=== PATIENT | female | born 1975 | race Two or more races ===

== ENCOUNTER 2024-01-14 14:02 | Outpatient (RCR) | payer MEDICAID, SELFPAY ==
--- NOTE | 2024-01-25 21:51 | CTCFLWUP_ITS ---
Patient: EMELIA HAYDEN : 1975 Page 2 of 7 FOLLOW UP NOTE DATE OF GNPIEQN6601/22/2024 NAME: EMELIA HAYDEN ACCOUNT: [id number] : 1975 AGE: 48 DIAGNOSIS: Stage IIIb (pT4, pN1A, cM0) ER positive, UT positive, HER-2/aysha negative high-grade infilt rating ductal carcinoma of the right breast with focally involving the overlying skin and deep margin (08/02/2014). Status post right modified radical mastectomy. Hysterectomy (10/25/2011). 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 Status post total thyroidectomy followed by radioactive iod ine treatment. Premenopausal status REASON FOR TODAY?S VISIT: This is office follow-up visit. Ms. Hayden is here at [facility]. She is clinically doing well. Denies any cough, chest pain, abdominal pain or leg cramps. She complains of pain in the left knee. She recently fell and sustained injury to t he left knee. Currently she is being followed by orthopedic physician. The patient denies any fevers or night sweats. Has good appetite and good energy levels. Since last visit she had barium enema which is a negative study. HISTORY OF PRESENT ILLNESS: Madhuri Hidalgo is a 48-year-old [place]yan-speaking premenopausal Hispa gael female with following oncology history. 12/14/2013: Right breast ultrasound showed a suspicious nodule measuring 2.69 x 2.15 x 2.08 cm in siz e. 03/10/2014: Ultrasound-guided biopsy of the right breast nodule showed grade 2?3 invasive ductal carcin joseline, ER positive, UT positive and HER-2/aysha negative. 05/03/2014?07/05/2014: Patient received 4 cycles of AC chemotherapy. 08/02/2014: Patient had a right modified radical mastectomy. Surgical pathology specimen showed a pT4, pN1A disease. 09/01/2014?11/03/2014: Patient received 4 cycles of Taxotere chemotherapy. 11/21/2014?01/13/2015: Patient received a total of 6300 cGy of radiation to the right chest and suprac lavicular area. Following the radiation therapy patient was started on adjuvant tamoxifen. 03/13/2018: PET CT scan was done which showed a hypermetabolic left thyroid nodule measuring 14 mm in size with an SUV of 8.7. Metastatic disease was not found. 04/22/2018: Thyroid ultrasound showed a 7 x 11 mm nodule in the upper portion of the left thyroid lobe and a 20 x 13 mm second nodule in the lower portion of the left thyroid lobe. 05/23/2018: Nuclear medicine radioisotope thyroid uptake and scan showed elevated thyroid uptake value s. 06/25/2018: Patient had ultrasound-guided fine-needle aspiration of the left thyroid nodule. Patholog y showed papillary thyroid carcinoma. 07/09/2018: Thyroglobulin less than 2.0 , antithyroglobulin antibodies 1.8 (0.0?0.9). TSH 1.78. 08/18/2018: Total thyroidectomy. 10/22/2018: Patient had radioactive iodine treatment. 01/13/2019: CT scan of the neck with contrast?minimal residual left thyroid tissue, axial image 46, 7 x 6 mm Minimal residual right thyroid tissue, axial image 45, 4 x 3 mm 07/09/2018: Antithyroglobulin antibodies 1.8, thyroglobulin less than 2.0 10/01/2018: Antithyroglobulin antibodies 4.0, thyroglobulin 2.1 12/03/2018: Antithyroglobulin antibodies 5.4, thyroglobulin 5.1. 03/05/2019: Thyroglobulin antibody 4.7. 07/19/2019: Thyroglobulin antibody 4.3. 08/25/2019: Nuclear medicine thyroid scan? 09/28/2019: Thyroid sonography complete? 11/11/2019: CT scan of the neck with IV contrast?no interval metastatic disease. 11/29/2019: Left breast screening mammogram?BI-RADS Category 2: Benign findings. 11/29/2019: TSH 12.4, thyroglobulin antibody 4.6. 12/10/2019: PET CT scan? 07/20/2020 antithyroglobulin antibodies 4.0, thyroglobulin 3.4, TSH 0.457 07/28/2020: Total estrogens 1224 pg/mL, FSH 13.6, LH 17.9. 09/19/2020: CT scan of the neck, chest, abdomen and pelvis? 09/27/2020: Patient received 7.5 mg of Lupron. 10/17/2020: Patient had transvaginal as well as pelvic ultrasound. 01/10/2021: Thyroglobulin antibody 2.8, antithyroglobulin antibodies 3.5, thyroglobulin 2.6, TSH 2.6, CEA 0.9 03/05/2022: Thyroglobulin antibody 3.1, antithyroglobulin antibodies 2.5, thyroglobulin 2.0, TSH 0.953, free T4 1.69 07/04/2022: Thyroglobulin antibody 2.8, TSH 0.273, T41.75. 08/07/2022: Thyroglobulin antibody 2.6, TSH3.530, T4 1.38 08/27/2022: CT chest w con 08/27/2023: Barium enema done PAST MEDICAL HISTORY: PAST SURGICAL HISTORY: MEDICATIONS: 1. Calcium 600 + D(3) - 600 mg calcium- 200 unit 1 Capsule Twice a Day 2. Synthroid - 88 mcg 1 tab Daily 3. Synthroid - 100 mcg 1 tab Daily 4. tamoxifen - 20 mg 1 tab one tab po q daily Medications Last Reconciled by Brandy Davis MA on 09/25/2023 ALLERGIES: No Known Drug Allergies REVIEW OF SYSTEMS: Neurological: No headache, seizures or blurring of vision. Gastrointestinal: No nausea, vomiting, diarrhea or constipation. Cardiovascular: No palpitations or angina pains. Respiratory: No cough, chest pain or shortness of breath. PHYSICAL EXAMINATION: Vitals reviewed Alert oriented x 4 no adenopathy palpable in the neck, axillary and inguinal regions. Chest clear to auscultation. No wheezes or rales audible. Abdomen is soft. No hepatosplenomegaly palpable. Extremities no clubbing or cyanosis noted. ASSESSMENT: #1 stage IIIb history of ER positive, UT positive, HER-2/aysha negative invasive ductal carcinoma of ri ght breast without any evidence of recurrence Barium enema is negative. Pelvic as well as transvaginal ultrasounds were negative for any adnexal masses. Premenopausal status. 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 No clinical evidence of recurrence Status post radioactive iodine treatment. Currently Ms. Hayden is on Synthroid 75 mcg p.o. daily. #3 hypothyroidism on levothyroxine Follow with the primary care thyroid replacement therapy can worsen osteoporosis #4 osteoporosis Reclast therapy continue calcium and vitamin D. On electronically signed by Dr. Will Electronically Signed by: {Object.Sanct_ID*[email or web address]@M}, {Object.Sanct_ID*[email or web address]@U} D: {Object.Sanct_Date} T: {Object.Sanct_Time} CC: PCP: Shoaib Soliz Referring: Shoaib Soliz This document was completed utilizing speech recognition software. Grammatical errors, random word in sertions, pronoun errors, and incomplete sentences are an occasional consequence of this system due t o software limitations, ambient noise, and hardware issues. Any formal questions or concerns about th e content, text or information contained within the body of this dictation should be directly address ed to the provider for clarification.
== END 2024-01-31 23:59 | disposition home or self-care (01) ==
LOC: SCTC 14:02
PROVIDERS: PCP Family Medicine; Referring Provider Family Medicine; Visit Provider Radiology Therapeutic Radiology
DX: Z51.11 Encounter for antineoplastic chemotherapy (principal); C50.111 Malignant neoplasm of central portion of right female breast; Z17.0 Estrogen receptor positive status [ER+]; Z17.21 Progesterone receptor positive status; Z17.32 Human epidermal growth factor receptor 2 negative status; E89.0 Postprocedural hypothyroidism; Z85.850 Personal history of malignant neoplasm of thyroid; M81.0 Age-related osteoporosis without current pathological fracture; Z90.11 Acquired absence of right breast and nipple; Z92.3 Personal history of irradiation; Z79.810 Long term (current) use of selective estrogen receptor modulators (SERMs)
CPT/HCPCS: 96402; 99213; J1950; G0463

== ENCOUNTER → 2024-02-09 | Outpatient (CLI) | payer MEDICAID, SELFPAY ==
--- NOTE | 2024-02-09 15:30 | XR_ITS ---
Examination: Thyroid sonography TECHNIQUE: Multiple high resolution grayscale sonographic images thyroid bed Exam date and time: February 09, 2024 1504 hours INDICATIONS: Diagnosis thyroid cancer with thyroidectomy 2018 FINDINGS: No thyroid tissue noted No soft tissue mass in the thyroid bed IMPRESSION: No soft tissue mass or lymphadenopathy in the thyroid bed
== END | disposition home or self-care (01) ==
PROVIDERS: PCP Radiology Therapeutic Radiology; Referring Provider Radiology Therapeutic Radiology; Visit Provider Radiology Therapeutic Radiology
DX: C50.211 Malignant neoplasm of upper-inner quadrant of right female breast (principal); C50.011 Malignant neoplasm of nipple and areola, right female breast; C50.111 Malignant neoplasm of central portion of right female breast; C73 Malignant neoplasm of thyroid gland
CPT/HCPCS: 76536

== ENCOUNTER 2024-02-10 14:09 | Outpatient (RCR) | payer MEDICAID, SELFPAY | END 2024-03-02 23:59 | disposition home or self-care (01) | LOC: SCTC 14:09 | PROVIDERS: PCP Family Medicine; Referring Provider Family Medicine; Visit Provider Internal Medicine Hematology & Oncology | DX: Z51.11 Encounter for antineoplastic chemotherapy (principal); C50.111 Malignant neoplasm of central portion of right female breast; Z17.0 Estrogen receptor positive status [ER+]; Z17.21 Progesterone receptor positive status; Z17.32 Human epidermal growth factor receptor 2 negative status; M81.0 Age-related osteoporosis without current pathological fracture; E89.0 Postprocedural hypothyroidism | CPT/HCPCS: 96402; J1950 ==

== ENCOUNTER 2024-03-09 11:29 | Outpatient (RCR) | payer MEDICAID, SELFPAY | END 2024-04-02 23:59 | disposition home or self-care (01) | LOC: SCTC 11:29 | PROVIDERS: PCP Family Medicine; Referring Provider Family Medicine; Visit Provider Internal Medicine Hematology & Oncology | DX: Z51.11 Encounter for antineoplastic chemotherapy (principal); C50.111 Malignant neoplasm of central portion of right female breast; Z17.0 Estrogen receptor positive status [ER+]; Z17.21 Progesterone receptor positive status; Z17.32 Human epidermal growth factor receptor 2 negative status; Z90.11 Acquired absence of right breast and nipple; Z85.850 Personal history of malignant neoplasm of thyroid; E89.0 Postprocedural hypothyroidism; M81.0 Age-related osteoporosis without current pathological fracture | CPT/HCPCS: 96402; J1950 ==

== ENCOUNTER → 2024-03-10 | Outpatient (CLI) | payer MEDICAID, SELFPAY ==
--- NOTE | 2024-03-10 | XR_ITS ---
Examination: Screening digital mammography, unilateral left Computer aided detection 3-D breast Tomosynthesis, unilateral Date and time of exam: March 10, 2024 at 0810 hours Compared to 11/29/2019 Indication: Screening, personal history right breast cancer, right mastectomy Technique: Nonmagnified MLO, CC views of the left breast to been obtained, reconstructed from 3-D Tomosynthesis images. R2 computer aided detection program utilized for evaluation of suspicious masses and/or abnormal calcifications. 3-D Tomosynthesis images obtained. Findings: Scattered areas of fibroglandular density. Benign calcifications. No interval suspicious masses Impression: BI-RADS category II Benign findings Recommend 1 year follow-up mammogram.
--- NOTE | 2024-03-10 08:05 | XR_ITS ---
Examination: Breast ultrasound, unilateral, left complete Date and time of exam: March 10, 2024 0817 hours INDICATIONS: Screening study, personal history right breast cancer mastectomy 2014 Technique: Real-time benavides scale ultrasonographic imaging performed left breast including all 4 quadrants as well as nipple retroareolar and axillary region. Findings: No cystic or solid mass IMPRESSION: BI-RADS Category 1: Negative study
== END | disposition home or self-care (01) ==
LOC: CDIM 07:40
PROVIDERS: PCP Family Medicine; Referring Provider Internal Medicine Hematology & Oncology; Visit Provider Internal Medicine Hematology & Oncology
DX: Z12.31 Encounter for screening mammogram for malignant neoplasm of breast (principal); R92.322 Mammographic fibroglandular density, left breast; R92.1 Mammographic calcification found on diagnostic imaging of breast; C50.211 Malignant neoplasm of upper-inner quadrant of right female breast; C50.011 Malignant neoplasm of nipple and areola, right female breast
CPT/HCPCS: 76641; 77063; 77067

== ENCOUNTER 2024-03-20 08:06 | Emergency (ER) | payer MEDICAID, SELFPAY ==
[2024-03-20 08:07] VITALS: BMI 23.5
[2024-03-20 08:18] VITALS: BP 120/81; PULSE 89; RESP 17; TEMP 36.7; O2SAT 99
--- NOTE | 2024-03-20 08:27 | XR_ITS ---
Examination:Right hip AP, lateral, AP pelvis 3 views Technique: Hip AP lateral, AP pelvis, 3 views Exam date and time:March 20, 2024 0847 hrs. Indications: Patient fell today with injury to the right hip, right hip pain. Findings: No acute right hip fracture or hip dislocation Advanced right hip osteoarthritis Left hip intact Old appearing fracture right inferior pubic ramus Impression: No acute right hip fracture or hip dislocation Consider follow-up CT scan right hip and pelvis as clinically warranted.
[2024-03-20] MEDS: HYDROcodone/APAP 5/325 TABLET 1 TAB PO ×2 (09:03→12:38)
--- NOTE | 2024-03-20 09:03 | XR_ITS ---
Examination: CT pelvis without intravenous contrast. 2-D sagittal and coronal reconstructions. Date and time of exam:March 20, 2024 at 0952 hrs. Indications: Patient fell yesterday with injury to the right hip, right hip pain CTDI: vol (mGy) :8.2 DLP: (mGycm) : 227 Technique: Multiple 3 mm axial sections of the pelvis have been obtained with the 64 slice high resolution scanner. 2-D sagittal and coronal reconstructions. Low dose protocols were performed. One or more of the following dose reduction techniques were used; automated exposure control, adjustment of the mA and/or KV according to patient size, use of iterative reconstruction technique. Findings: Moderate osteopenia No right hip fracture Moderate right hip osteoarthritis Discontinuity of the medial wall of the right acetabulum, coronal image 59, axial image 93, this is present on the 11/20/2021 exam as well as old fracture right inferior pubic ramus Left hip intact Impression: No acute right hip fracture If right hip pain persists, recommend 1-2 day plain films pelvis and/or right hip MRI follow-up
--- NOTE | 2024-03-20 09:04 | PD.EDRME ---
Rapid Medical Screening Exam RME Arrival date/time: 03/20/24 08:06 48-year-old female with history of breast cancer hypothyroid presents to the emergency department complains of right hip pain after fall today Chief Complaint: Extremity Injury, Upper Time Seen by Provider: 03/20/24 08:12 Vital signs: Vital Signs Temperature 98.1 F 03/20/24 08:18 Pulse Rate 89 03/20/24 08:18 Respiratory Rate 17 03/20/24 08:18 Blood Pressure 120/81 03/20/24 08:18 Pulse Oximetry (%) 99 03/20/24 08:18 Oxygen Delivery Method Room Air 03/20/24 08:18
[2024-03-20 09:39] VITALS: BP 117/70; PULSE 76; RESP 25; TEMP 36.6; O2SAT 100
--- NOTE | 2024-03-20 09:52 | PD.EDHIP ---
Lower Extremity Injury RME/HPI General Chief Complaint: Extremity Injury, Lower Stated Complaint: R THIGH PAIN S/P GLF X YESTERDAY Time Seen by Provider: 03/20/24 08:12 Arrival date/time: 03/20/24 08:06 RME / HPI RME / HPI Narrative: 03/20/24 08:06 48-year-old female with history of breast cancer hypothyroid presents to the emergency department complains of right hip pain after fall today DR. BLACK MAIN ED EVALUATION: 48 year female presents to the Emergency Department with complaint of right hip pain secondary to ground-level fall today. Pain is described as aching and rated moderate in severity. Movement exacerbates the pain. No head injury or other injuries reported. PMHx: Breast Cancer (2014), chemotherapy (2014) and radiation therapy (2014); mastectomy (right 2014). Hysterectomy and a section. Social Hx: No tobacco, alcohol, or substance use. Related Data Home Medications ?Medication ?Instructions ?Recorded ?Confirmed levothyroxine 100 mcg capsule 100 mcg PO QDAY 01/29/19 07/18/23 anastrozole 1 mg tablet 1 mg PO QDAY 11/28/21 07/18/23 omeprazole 20 mg capsule,delayed 1 cap PO QDAY 11/28/21 07/18/23 release Previous Rx's ?Medication ?Instructions ?Recorded ibuprofen 600 mg tablet 600 mg PO Q6H PRN pain #30 tabs 11/28/21 meloxicam 7.5 mg tablet 7.5 mg PO QDAY #45 tabs 07/11/23 Allergies Allergy/AdvReac Type Severity Reaction Status Date / Time No Known Allergies Allergy Verified 03/20/24 08:10 Review of Systems Review of Systems Systems Reviewed: All systems reviewed, normal except as documented Narrative Review of Systems: GEN: No fever, no chills, no weight loss EYES: No discharge, no visual changes, no pain HEENT: No ear pain, no congestion, no sore throat PULM: No shortness of breath, no cough, no congestion CV: No chest pain, no dyspnea on exertion, no palpitations GI: No nausea, no vomiting, no diarrhea, no pain, no constipation : No frequency, no urgency and no dysuria MUSC/SKEL: + right hip pain, no back pain SKIN: No rash PSYCH: No hallucinations, no depression HEME/LYMPH: No easy bleeding or bruising tendencies NEURO: No weakness, no headache Past Medical History Past Medical History NEUROLOGIC: Negative Neurological Disorders or Seizures CARDIAC: Negative Cardiac Disorders or Congestive Heart Failure RESPIRATORY: Negative Chronic Obstructive Pulmonary Disease (COPD) GASTROINTESTINAL: Negative Gastrointestinal Disorders GENITOURINARY: Negative Genitourinary Disorders or Renal Disease REPRODUCTIVE: Positive Breast Cancer (2015) and Previous Pregnancies () MUSCULOSKELETAL: Positive Arthritis; Negative Musculoskeletal Disorders ENDOCRINE: Negative Endocrine Disorders, Diabetes Mellitus Type 1 or Diabetes Mellitus Type 2 HEMATOLOGIC: Negative Blood Disorders, Anemia or Clotting Problems PSYCHO/SOCIAL: Positive Depression and Anxiety OTHER HISTORY: Positive Chemotherapy (2015), Radiation Therapy (2015), Measles, Cancer (Thyroid) and Breast Cancer (2015) Family History FAMILY HISTORY: Negative Family Psychiatric Problems, Family Respiratory Disorders, Family Cardiac Disorders, Family Gastrointestinal Problems, Family Cancer, Family Surgery or Family Anesthesia Reaction Surgical History SURGICAL: Positive Mastectomy (right 2015), Hysterectomy and Section (x1) Social History SMOKING STATUS: Never smoker SUBSTANCE USE: does not use ALCOHOL: Never Travel History EBOLA RISK: No ED Exam Narrative Physical exam: GENERAL APPEARANCE: alert and oriented x 4, well-developed, well-nourished, no acute distress VITALS: All vitals were reviewed and the pulse ox is 95% on room air, which is normal according to my interpretation. HEENT: Normocephalic, atraumatic; pupils equal, round, reactive to light; EOMI; mucous membranes pink, moist; oropharynx clear NECK: Supple LUNGS: CTABL; no wheezes, no rales, no rhonchi HEART: Regular rate, regular rhythm; normal S1, S2; no murmurs ABDOMEN: non distended; normal BS; soft, no tenderness, no guarding, no rebound; no masses, no organomegaly, no hernia BACK: no CVA tenderness EXTREMITIES: right hip tenderness on palpation with limited ROM due to pain NEUROLOGIC: awake; alert and oriented x4; cranial nerves II-XII grossly intact; no focal sensory or motor deficits PSYCHIATRIC: appropriate mood and affect SKIN: warm, dry, normal color; no rashes Course Quality Measures none Orders Category Date Time Status CT hip RT wo con Stat Exams 03/20/24 09:03 Completed XR hip RT w pelvis 2-3V Stat Exams 03/20/24 08:27 Completed CBC Stat Lab 03/20/24 09:42 Completed CMP [Comprehensive Metabolic Panel] Stat Lab 03/20/24 09:42 Completed PT [Prothrombin Time with INR] Stat Lab 03/20/24 09:42 Completed PTT [Partial Thromboplastin Time] Stat Lab 03/20/24 09:42 Completed HYDROcodone*/APAP 5/325 [[facility] 5/325] Med 03/20/24 08:28 Discontinued 1 tab PO X1 ONE HYDROcodone*/APAP 5/325 [[facility] 5/325] Med 03/20/24 12:23 Discontinued 1 tab PO X1 ONE Vital Signs Vital signs: Vital Signs Temperature 98.1 F 03/20/24 08:18 Pulse Rate 89 03/20/24 08:18 Respiratory Rate 17 03/20/24 08:18 Blood Pressure 120/81 03/20/24 08:18 Pulse Oximetry (%) 99 03/20/24 08:18 Oxygen Delivery Method Room Air 03/20/24 08:18 Extremity Injury, Lower MDM Narrative MDM Narrative:: ISultana am scribing for and in the presence of Dr. Black. Patient data External records reviewed:: [facility] previous records (Reviewed oncology note by Dr. Will, dated 01/25/24) Clinical information provided by:: patient Social determinants that could affect healthcare access:: none Patient has the following chronic illnesses:: Breast Cancer (2014), chemotherapy (2015) and radiation therapy (2014); mastectomy (right 2015). Hysterectomy and a section. How is presenting disease/condition affected by chronic disease/condition?: uneffected by Evaluation data The following diagnostics were reviewed and interpreted by me:: lab results and radiology exam(s) Lab and/or radiology exams considered but not ordered:: none Interpretation Summary: Procedure(s): XR hip RT w pelvis 2-3V Accession Number(s): [id number] cc: Pina (SHAINA),Saulo MERRITT; Jasen Franco MD; Ann Rey PA-C~ Examination:Right hip AP, lateral, AP pelvis 3 views Technique: Hip AP lateral, AP pelvis, 3 views Exam date and time:March 20, 2024 0847 hrs. Indications: Patient fell today with injury to the right hip, right hip pain. Findings: No acute right hip fracture or hip dislocation Advanced right hip osteoarthritis Left hip intact Old appearing fracture right inferior pubic ramus Impression: No acute right hip fracture or hip dislocation Consider follow-up CT scan right hip and pelvis as clinically warranted. Dictated By: Jasen Franco MD Procedure(s): CT hip RT wo con Accession Number(s): [id number] cc: Pina (SHAINA),Saulo MERRITT; Jasen Franco MD; Ann Rey PA-C~ Examination: CT pelvis without intravenous contrast. 2-D sagittal and coronal reconstructions. Date and time of exam:March 20, 2024 at 0952 hrs. Indications: Patient fell yesterday with injury to the right hip, right hip pain CTDI: vol (mGy) :8.2 DLP: (mGycm) : 227 Technique: Multiple 3 mm axial sections of the pelvis have been obtained with the 64 slice high resolution scanner. 2-D sagittal and coronal reconstructions. Low dose protocols were performed. One or more of the following dose reduction techniques were used; automated exposure control, adjustment of the mA and/or KV according to patient size, use of iterative reconstruction technique. Findings: Moderate osteopenia No right hip fracture Moderate right hip osteoarthritis Discontinuity of the medial wall of the right acetabulum, coronal image 59, axial image 93, this is present on the 11/20/2021 exam as well as old fracture right inferior pubic ramus Left hip intact Impression: No acute right hip fracture If right hip pain persists, recommend 1-2 day plain films pelvis and/or right hip MRI follow-up Dictated By: Jasen Franco MD Medications / Prescriptions Medications or Prescriptions considered but not ordered:: none Medication administrations:: Medication Administration History Discontinued Medications Hydrocodone Bitart/Acetaminophen (Hydrocodone/Apap 5/325 Tablet) 1 tab PO X1 ONE Stop: 03/20/24 08:29 Last Admin: 03/20/24 09:03 Dose: 1 tab Documented By: GM Hydrocodone Bitart/Acetaminophen (Hydrocodone/Apap 5/325 Tablet) 1 tab PO X1 ONE Stop: 03/20/24 12:24 Last Admin: 03/20/24 12:38 Dose: 1 tab Documented By: VG see above Consultations Consultation(s) initiated? (list below): No Diagnosis Extremity Injury, Lower Differential Diagnosis: fracture of hip and other (right hip contusion, fall) Most likely diagnosis given after review of the tests above:: Acute pain of right hip Fall Admission Indicated Admission indicated?: not indicated Admission Request Was there a request for admission?: No Disposition Plan Disposition Plan: Discharge Discharge Attestation Discharge Attestation: The patient and all family members were given an opportunity to ask questions and understood the discharge instructions. Discharge instructions specifically effects, indications for sooner follow up or return to the emergency department, and the expected course of current diagnosis. Patient condition: Stable Discharge Plan Plan Patient Disposition: HOME (Self Care) Prescriptions/Referrals Prescriptions/Med Rec: No Action meloxicam 7.5 mg tablet 7.5 mg PO QDAY Qty: 45 3RF levothyroxine 100 mcg Capsule 100 mcg PO QDAY anastrozole 1 mg Tablet 1 mg PO QDAY omeprazole 20 mg capsule,delayed release(DR/EC) 1 cap PO QDAY Patient Comments: take 1 capsule by mouth once daily ibuprofen 600 mg tablet 600 mg PO Q6H PRN (Reason: pain) Qty: 30 0RF Referrals: Ann Rey PA-C [Primary Care Provider] - In 1 week Problem List Clinical Impression: Acute pain of right hip, Fall Patient/Caregiver Discharge Instructions Education Materials: ED Hip Contusion Print Language: Japanese Stand Alone Forms: Yara Award Info., Patient Portal Info Letter
[2024-03-20 10:05] LABS: Alanine Aminotransferase 11 U/L (10-49); Albumin, Serum 4.5 gm/dL (3.5-5.0); Albumin/Globulin Ratio 1.8 (1.2-2.2); Alkaline Phosphatase 39 U/L (46-116); Anion Gap 8 (7-16); Aspartate Amino Transferase 18 U/L (0-34); BUN/Creatinine Ratio 20 Ratio (12-20); Bilirubin,Total 0.5 mg/dL (0.3-1.2); Blood Urea Nitrogen 12 mg/dL (9-23); Carbon Dioxide 25.7 mMol/L (20.0-31.0); Chloride 106 mMol/L (98-107); Creatinine (Component) 0.6 mg/dL (0.6-1.3); Estimated Creatinine Clearance 109.1 mL/min (>60); Globulin 2.5 gm/dL (2.3-3.5); Glucose 94 mg/dL (74-106); Osmolality,Calculated 279 (275-295); Potassium 3.7 mMol/L (3.4-5.1); Sodium 140 mMol/L (136-145); eGFR > 60 See Note
[2024-03-20 10:09] LABS: Basophils # (Auto) 0.1 Thou/mm3 (0.0-0.2); Basophils % (Auto) 1 % (0-2.5); Eosinophils % (Auto) 1 % (0-10); Hematocrit 35.4 % (36.0-46.0); Hemoglobin 11.9 g/dL (12.0-16.0); Immature Granulocytes % (Auto) 0 % (0-0); Immature Granulocytes Auto 0.01 Thou/mm3 (0.00-0.00); Lymphocytes # (Auto) 1.8 Thou/mm3 (1.0-4.8); Lymphocytes % (Auto) 22 % (10-50); Mean Corpuscular HGB Conc 33.6 g/dl (31.0-37.0); Mean Corpuscular Hemoglobin 29.8 pg (25.0-35.0); Mean Corpuscular Volume 89 fL (80-100); Monocytes # (Auto) 0.5 Thou/mm3 (0.0-0.8); Monocytes % (Auto) 7 % (0-12); Neutrophils # (Auto) 5.8 Thou/mm3 (1.8-7.7); Neutrophils % (Auto) 71 % (37-80); Nucleated Red Blood Cell % 0 /100 WBC (0); Platelet Count 247 Thou/mm3 (140-440); Red Blood Count 3.99 Miln/mm3 (4.00-5.20); White Blood Count 8.3 Thou/mm3 (3.6-11.0)
[2024-03-20 10:17] LABS: INR 1.1 (0.9-1.3); Partial Thromboplastin Time 25.1 Seconds (22.0-36.0); Prothrombin Time 11.6 Seconds (9.0-12.2)
[2024-03-20 12:35] VITALS: BP 118/22; PULSE 71; RESP 16; TEMP 36.7; O2SAT 100
[2024-03-20 12:45] VITALS: BP 120/62; PULSE 65; RESP 16; TEMP 36.6; O2SAT 100
== END 2024-03-20 12:46 | disposition home or self-care (01) ==
PROVIDERS: Nurse Practitioner Primary Care; Emergency Provider Emergency Medicine; PCP Physician Assistant
DX: M25.551 Pain in right hip (principal); E03.9 Hypothyroidism, unspecified
CPT/HCPCS: 36415; 73502; 73700; 80053; 85025; 85610; 85730; 99284; A9270

== ENCOUNTER 2024-04-22 08:34 | Outpatient (RCR) | payer MEDICAID, SELFPAY | END 2024-04-30 23:59 | disposition home or self-care (01) | LOC: SCTC 08:34 | PROVIDERS: PCP Family Medicine; Referring Provider Family Medicine; Visit Provider Radiology Therapeutic Radiology | DX: Z51.11 Encounter for antineoplastic chemotherapy (principal); C50.111 Malignant neoplasm of central portion of right female breast; Z17.0 Estrogen receptor positive status [ER+]; Z17.21 Progesterone receptor positive status; Z17.32 Human epidermal growth factor receptor 2 negative status; E89.0 Postprocedural hypothyroidism; Z85.850 Personal history of malignant neoplasm of thyroid; Z92.3 Personal history of irradiation; Z79.810 Long term (current) use of selective estrogen receptor modulators (SERMs); Z90.11 Acquired absence of right breast and nipple | CPT/HCPCS: 96402; 99212; J1950; G0463 ==

== ENCOUNTER 2024-05-10 15:26 | Outpatient (RCR) | payer MEDICAID, SELFPAY | END 2024-05-31 23:59 | disposition home or self-care (01) | LOC: SCTC 15:26 | PROVIDERS: PCP Family Medicine; Referring Provider Family Medicine; Visit Provider Internal Medicine Hematology & Oncology | DX: Z51.11 Encounter for antineoplastic chemotherapy (principal); C50.111 Malignant neoplasm of central portion of right female breast; Z17.0 Estrogen receptor positive status [ER+]; Z17.21 Progesterone receptor positive status; Z17.32 Human epidermal growth factor receptor 2 negative status; Z90.11 Acquired absence of right breast and nipple; E89.0 Postprocedural hypothyroidism; Z85.850 Personal history of malignant neoplasm of thyroid | CPT/HCPCS: 96402; J1950 ==

== ENCOUNTER 2024-06-07 15:25 | Outpatient (RCR) | payer MEDICAID, SELFPAY | END 2024-06-30 23:59 | disposition home or self-care (01) | LOC: SCTC 15:25 | PROVIDERS: PCP Family Medicine; Referring Provider Family Medicine; Visit Provider Internal Medicine Hematology & Oncology | DX: Z51.11 Encounter for antineoplastic chemotherapy (principal); C50.211 Malignant neoplasm of upper-inner quadrant of right female breast; Z17.0 Estrogen receptor positive status [ER+]; Z17.21 Progesterone receptor positive status; Z17.32 Human epidermal growth factor receptor 2 negative status; Z79.818 Long term (current) use of other agents affecting estrogen receptors and estrogen levels; Z90.11 Acquired absence of right breast and nipple; Z85.850 Personal history of malignant neoplasm of thyroid; E89.0 Postprocedural hypothyroidism; Z92.3 Personal history of irradiation | CPT/HCPCS: 96372; 96402; J1950 ==

== ENCOUNTER 2024-07-13 09:34 | Outpatient (AMB) | payer MEDICAID, SELFPAY ==
[2024-07-13 09:48] VITALS: BP 118/82; PULSE 72; RESP 18; TEMP 36.9; O2SAT 99; BMI 25.5
--- NOTE | 2024-07-13 09:48 | ORTHONT_ITS ---
Vital signs 07/13/24 09:48 Height 1.6 m Height Method Stated Weight 65.459 kg Weight Measurement Method Standing Scale BMI 25.5 BP 118/82 Blood Pressure Source Automatic Cuff Blood Pressure Location Right Upper Arm Position Sitting Respiration 18 Pulse 72 Pulse Source Monitor Temp 98.4 F Temp Source Temporal Artery Scan Pulse Oximetry (%) 99 Oxygen Delivery Method Room Air Med/Allergies Allergies & Medications Allergies No Known Allergies Allergy (Verified 07/13/24 09:49) Medication Reconciliation ibuprofen 600 mg tablet 600 mg PO Q6H PRN pain #30 tabs 11/28/21 [Rx Confirmed 07/13/24] meloxicam 7.5 mg tablet 7.5 mg PO QDAY #45 tabs 07/11/23 [Rx Confirmed 07/13/24] meloxicam 7.5 mg tablet 7.5 mg PO QDAY #45 tabs 07/13/24 [Rx] Exam Exam Patient is in no acute distress and is cooperative with the examination today. Breathing is nonlabored. In no respiratory distress. Patient has no paraspinal tenderness. Spinal deformity cannot be appreciated. The gait of the patient is nonantalgic Bilateral extremities were evaluated and demonstrates sensation intact to light touch. Palpable pedal pulses are present. No significant edema is present. Bilateral knees were examined and the patient has full strength and range of motion.. The left hip was examined. Patient was able to flex to 90 degrees, adduct to 30 degrees, abduct to 40 degrees, internally rotate to 20 degrees, and externally rotate to 20 degrees. Patient has a negative logroll. Stinchfield is negative. The patient is nontender diffusely to touch. The right hip was examined. Patient was able to flex to 90 degrees, adduct to 30 degrees, abduct to 40 degrees, internally rotate to 10 degrees, and externally rotate to 20 degrees. Patient has a positive logroll and Stinchfield X-rays demonstrate a right hip with an aspherical femoral head. 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 She has evidence of a healed inferior pubic ramus fracture Assessment and Plan Problem List (1) Unilateral primary osteoarthritis, right hip: Status: Acute Plan: Patient is a pleasant 49-year-old female with right hip pain he has not tried significant conservative treatment. We will start with anti-inflammatories. We could possibly try cortisone injection if this does not get great relief. We also discussed that her total hip replacement is a little tough because of her protrusio. We will start with conservative management. We discussed natural history of arthritis in great detail today Office Procedures GNS Level of Care Nursing/Assessment Patient Status: Established Patient Nursing Assessment/Reassesment: Medication Reconciliation, Update PMH in EMR and Vital Signs Coordination of Care: Complex Care and Chronic Disease 1-5, Consent,records obtained, informed consent, Education Simp Pt/Fam, Results/Orders obtained and Staff clarify orders Special Needs: Language special needs (BARBADIAN ) Established Patient Charge Established Patient Point Assignment: 90 Established Patient Point Charge: EP Level 3 (80-115) MA Intake Visit Data Collection New Patient or Established: Established Patient (seen at [facility] within 3 years) Reason for Visit:: OSTEOARTHRITIS RT HIP Seen by Clinical Staff ONLY (RN/MA): No Park Worker Required: Yes PCP or OBGYN visit in last 3 months: Yes Hx Now: No Do You Feel Safe at Home: Yes Authorities Contacted: N/A Questionairres Past Medical History Past Medical History Have you ever been diagnosed with any of the following: Neurological Problems Seizures: No Cardiology Problems Congestive Heart Failure: No Respiratory Problems Chronic Obstructive Pulmonary Disease (COPD): No Smoking: No Smoking Cessation Counseling: No Smoking Exposure: No Tobacco Use: No Genital/Urinary Problems Renal Disease: No Reproductive Problems Breast Cancer: Yes (2014) Previous Pregnancies: Yes () Musculoskeletal Problems Arthritis: Yes Endocrine Problems Diabetes Mellitus Type 1: No Diabetes Mellitus Type 2: No Blood Problems Anemia: No Clotting Problems: No Psychologic Problems Depression: Yes Anxiety: Yes Other Problems Hospitalization: No Falls: No Blood Transfusions: No Blood Transfusion Reaction: No Anesthesia Reactions: No Chemotherapy: Yes (2014) Radiation Therapy: Yes (2014) Measles: Yes Cancer: Yes (Thyroid) Surgical History Hysterectomy: Yes Subjective Visit Visit for: follow up visit and hip (OSTEOARTHRITIS OF RT HIP ) Immunization / Flu Flu Vaccine in the Last 12 Months: Yes Flu Vaccine Exclusion Criteria: Already Received History of Present Illness Chief complaint: Right hip pain Patient is a 49-year-old Female with right hip pain. The right hip pain has been ongoing for 4 years. She reports that this all started after she had a fall. She had a inferior pubic ramus fracture 4 years ago. Personal History Red flag PMH: none Pain Pain level (0-10): 8 Pain duration: 4 YEARS Pain location: groin Pain quality: sharp and aching Pain timing: night and increases with activity Associated signs & symptoms: weakness and stiffness Ambulatory data Ambulatory device: none Walking distance (minutes): 60 Treatments Number of previous injections: 0 Number of Physical Therapy sessions: 0 Improvement with NSAIDS: n/a Review of Systems Review of Systems: All systems negative unless otherwise noted in HPI.
== END 2024-07-13 10:04 | disposition home or self-care (01) ==
PROVIDERS: PCP Family Medicine; Referring Provider Family Medicine; Supervising Provider Orthopaedic Surgery Adult Reconstructive Orthopaedic Surgery; Visit Provider Orthopaedic Surgery Adult Reconstructive Orthopaedic Surgery
DX: M16.11 Unilateral primary osteoarthritis, right hip (principal)
CPT/HCPCS: 99213; G0463

== ENCOUNTER 2024-07-20 14:46 | Outpatient (RCR) | payer MEDICAID, SELFPAY ==
--- NOTE | 2024-07-27 23:41 | CTCFLWUP_ITS ---
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 She presents for follow-up of her oncological conditions. The patient has been on tamoxifen for nearly 10 years following her breast cancer diagnosis. She is currently taking Lupron (leuprolide) 3.75 mg monthly and receives Reclast, with the last dose given in March 2024. She also takes calcium and vitamin D supplements for osteoporosis. At her last visit, she reported knee pain after an injury, but this is not mentioned as an ongoing concern in the current visit. The patient's overall health status appears stable. Her most recent mammogram on 03-27-2024 showed benign findings, with a one-year follow-up recommended. A thyroid ultrasound in March 2023 showed no gross tumor or thyroid tissue. The patient's last CT scan of the chest in 2022 was negative. She has completed her course of treatment for thyroid cancer, including total thyroidectomy and radioiodine therapy. The patient is considering hip surgery in the future and has been advised to discontinue tamoxifen for at least two weeks prior to any surgical procedures due to the risk of blood clots. She has also been informed that she can stop taking tamoxifen soon, as she has nearly completed the recommended 10-year course. Medications and Supplements - Calcium - Vitamin D - Lupron (leuprolide for depot) 3.75 mg every month - Reclast - Last given in March 2024 - Tamoxifen - Taking for almost 10 years - More side effects than benefits after 10 years - Should be stopped at least 2 weeks before surgery due to risk of blood clots Review of Systems Musculoskeletal: Positive for knee pain. Objective: Laboratory, Imaging, and Diagnostic Test Results - Date: Not specified - CBC: Hemoglobin 11.9 g/dL (low), WBC 8.3, Platelets 247 (normal) - Alkaline phosphatase: Low (specific value not provided) - Mammogram (03/27/2024): Benign findings - Thyroid ultrasound (03/26/2023): No gross tumor or thyroid tissue - Pelvic ultrasound (date not specified): Negative for adnexal masses - CT chest (2022): Negative - Thyroid ultrasound (2023): No tissue mass or lymph nodes in thyroid bed ONCOLOGY HISTORY: DIAGNOSIS: Stage IIIb (pT4, pN1A, cM0) ER positive, ND positive, HER-2/aysha negative high-grade infiltrating ductal carcinoma of the right breast with focally involving the overlying skin and deep margin (08/02/2014). Status post right modified radical mastectomy. Hysterectomy (10/25/2011). 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 Status post total thyroidectomy followed by radioactive iodine treatment. Premenopausal status REASON FOR TODAY?S VISIT: This is office follow-up visit. Ms. Hayden is here at [facility]. She is clinically doing well. Denies any cough, chest pain, abdominal pain or leg cramps. She complains of pain in the left knee. She recently fell and sustained injury to the left knee. Currently she is being followed by orthopedic physician. The patient denies any fevers or night sweats. Has good appetite and good energy levels. Since last visit she had barium enema which is a negative study. Central portion of breast [ICD9] 174.1*; Malignant neoplasm of upper-inner quadrant of right female breast [ICD10] C50.211; Malignant neoplasm of nipple and areola, right female breast [ICD10] C50.011; Malignant neoplasm of central portion of right female breast [ICD10] C50.111; Malignant neoplasm of thyroid gland [ICD10] C73 DATE OF DIAGNOSIS: 03/10/2014 STAGE/TNM: IIIB T4a N1a M0 TREATMENT HISTORY: Care?Plan Start?Date Cycle Day Intent DOXOrubicin?60,?Cyclophos?600?+?G 05/03/2014 1 21 Curative?(primary) DOCEtaxel?75?mg/m*2?-?Breast 09/01/2014 1 21 Curative?(adjuvant) Lupron?7.5?mg 08/17/2020 1 30 Curative?(adjuvant) Lupron?Depot?3.75?monthly 11/14/2022 1 28 Curative?(adjuvant) Reclast 03/17/2023 1 365 Palliative HISTORY OF PRESENT ILLNESS: Madhuri Hidalgo is a 49-year-old Malay-speaking premenopausal female with following oncology history. 12/14/2013: Right breast ultrasound showed a suspicious nodule measuring 2.69 x 2.15 x 2.08 cm in size. 03/10/2014: Ultrasound-guided biopsy of the right breast nodule showed grade 2?3 invasive ductal carcinoma, ER positive, ND positive and HER-2/aysha negative. 05/03/2014?07/05/2014: Patient received 4 cycles of AC chemotherapy. 08/02/2014: Patient had a right modified radical mastectomy. Surgical pathology specimen showed a pT4, pN1A disease. 09/01/2014?11/03/2014: Patient received 4 cycles of Taxotere chemotherapy. 11/21/2014?01/13/2015: Patient received a total of 6300 cGy of radiation to the right chest and supraclavicular area. Following the radiation therapy patient was started on adjuvant tamoxifen. 03/13/2018: PET CT scan was done which showed a hypermetabolic left thyroid nodule measuring 14 mm in size with an SUV of 8.7. Metastatic disease was not found. 04/22/2018: Thyroid ultrasound showed a 7 x 11 mm nodule in the upper portion of the left thyroid lobe and a 20 x 13 mm second nodule in the lower portion of the left thyroid lobe. 05/23/2018: Nuclear medicine radioisotope thyroid uptake and scan showed elevated thyroid uptake values. 06/25/2018: Patient had ultrasound-guided fine-needle aspiration of the left thyroid nodule. Pathology showed papillary thyroid carcinoma. 07/09/2018: Thyroglobulin less than 2.0 , antithyroglobulin antibodies 1.8 (0.0?0.9). TSH 1.78. 08/18/2018: Total thyroidectomy. 10/22/2018: Patient had radioactive iodine treatment. 01/13/2019: CT scan of the neck with contrast?minimal residual left thyroid tissue, axial image 46, 7 x 6 mm Minimal residual right thyroid tissue, axial image 45, 4 x 3 mm 07/09/2018: Antithyroglobulin antibodies 1.8, thyroglobulin less than 2.0 10/01/2018: Antithyroglobulin antibodies 4.0, thyroglobulin 2.1 12/03/2018: Antithyroglobulin antibodies 5.4, thyroglobulin 5.1. 03/05/2019: Thyroglobulin antibody 4.7. 07/19/2019: Thyroglobulin antibody 4.3. 08/25/2019: Nuclear medicine thyroid scan? 09/28/2019: Thyroid sonography complete? 11/11/2019: CT scan of the neck with IV contrast?no interval metastatic disease. 11/29/2019: Left breast screening mammogram?BI-RADS Category 2: Benign findings. 11/29/2019: TSH 12.4, thyroglobulin antibody 4.6. 12/10/2019: PET CT scan? 07/20/2020 antithyroglobulin antibodies 4.0, thyroglobulin 3.4, TSH 0.457 07/28/2020: Total estrogens 1224 pg/mL, FSH 13.6, LH 17.9. 09/19/2020: CT scan of the neck, chest, abdomen and pelvis? 09/27/2020: Patient received 7.5 mg of Lupron. 10/17/2020: Patient had transvaginal as well as pelvic ultrasound. 01/10/2021: Thyroglobulin antibody 2.8, antithyroglobulin antibodies 3.5, thyroglobulin 2.6, TSH 2.6, CEA 0.9 03/05/2022: Thyroglobulin antibody 3.1, antithyroglobulin antibodies 2.5, thyroglobulin 2.0, TSH 0.953, free T4 1.69 07/04/2022: Thyroglobulin antibody 2.8, TSH 0.273, T41.75. 08/07/2022: Thyroglobulin antibody 2.6, TSH3.530, T4 1.38 08/27/2022: CT chest w con 08/27/2023: Barium enema done OTHER MEDICAL HISTORY/CONDITIONS: FAMILY HISTORY: SOCIAL HISTORY: [employer] AGENT HISTORY: MEDICATIONS: 1. Calcium 600 + D(3) - 600 mg calcium- 200 unit 1 Capsule Twice a Day 2. Synthroid - 88 mcg 1 tab Daily 3. Synthroid - 100 mcg 1 tab Daily 4. Synthroid - 112 mcg 1 tab Daily 5. tamoxifen - 20 mg 1 tab Daily Medications Last Reconciled by Brandy Davis MA on 07/20/2024 ALLERGIES: No Known Drug Allergies REVIEW OF SYSTEMS: A complete 14-point review of systems was performed and is negative except as noted in interval history. PHYSICAL EXAMINATION: VITAL SIGNS: Temperature?99.1, B/P?122/84, Oxygen?Saturation?99% Weight?146?lbs (Change?since?07/05/24:?-1.4?lbs) PAIN: 3 - Between mild and moderate pain ECOG Performance Status: 0 - Asymptomatic and fully active Vitals reviewed Alert oriented x 4 no adenopathy palpable in the neck, axillary and inguinal regions. Chest clear to auscultation. No wheezes or rales audible. Abdomen is soft. No hepatosplenomegaly palpable. Extremities no clubbing or cyanosis noted. LABORATORY DATA: I have personally reviewed and interpreted each of the patient?s relevant lab tests, abnormal findings are below: Date 10/02/16 03/20/24 ??WHITE?BLOOD?COUNT?(Thou/mm3) 8.5 8.3 ??RED?BLOOD?COUNT?(Miln/mm3) 3.88?L 3.99?L ??HEMOGLOBIN?(gm/dl) 11.8?L 11.9?L ??HEMATOCRIT?(%) 34.6?L 35.4?L ??PLATELET?COUNT?(Thou/mm3) 245 247 ??NEUTROPHILS?%,?AUTO?(%) 71 71 ??LYMPH?%,?AUTO?(%) 23 22 ??NEUTROPHILS,?AUTO?(Thou/mm3) 6.0 5.8 ??GLUCOSE,RANDOM?(mg/dL) 84 94 ??BLOOD?UREA?NITROGEN?(mg/dL) 9 12 ??CREATININE?(mg/dL) 0.70 0.60 ??SODIUM?(mmol/L) 140 140 ??POTASSIUM?(mmol/L) 3.5 3.7 ??CHLORIDE?(mmol/L) 106 106 ??CrCl?(CandG)?(ml/min) 104.63 115.67 ??AST/SGOT?(Unit/L) 19 18 ??ALT/SGPT?(Unit/L) 22 11 ??ALKALINE?PHOSPHATASE?(Unit/L) 38?L 39?L ??BILIRUBIN,?TOTAL?(mg/dL) 0.4 0.5 ??PROTEIN?TOTAL?(gm/dl) 7.3 7.0 ??ALBUMIN,?SERUM?(gm/dl) 3.8 4.5 ??GLOBULIN?(gm/dl) 3.5 2.5 ??ALBUMIN/GLOBULIN?RATIO 1.1?L 1.8 ??CALCIUM,?SERUM?(mg/dL) 8.1?L 9.0 ??CALCIUM?SERUM?(CORRECTED)?(mg/dL) 8.3?L 9.0 ASSESSMENT/PLAN: Assessment and Plan: Kei diego is a patient with a history of stage 3B receptor-positive, HER2-negative high-grade invasive ductal carcinoma of the right breast (2014) and papillary thyroid cancer (2018), presenting for follow-up. Stage 3B receptor-positive, HER2-negative high-grade invasive ductal carcinoma, right breast Assessment: Patient was diagnosed with stage 3B receptor-positive, HER2-negative high-grade invasive ductal carcinoma of the right breast in 2014. She underwent neoadjuvant chemotherapy, modified mastectomy, and post-op radiation to the right chest wall and regional nodes. The patient has been on tamoxifen for nearly 10 years, which is considered the maximum beneficial duration. Recent mammogram on 03-27-2024 showed benign findings. The patient has completed the recommended course of tamoxifen therapy, and continuation beyond 10 years is associated with more side effects than benefits. Plan: - Discontinue tamoxifen at patient's discretion, as 10-year course is nearly complete - Continue calcium and vitamin D3 supplementation - Perform special blood test to monitor for breast cancer recurrence - Consider breast reconstruction with Dr. Walker if no hip surgery within one year - Follow-up mammogram recommended on 03-31-2025 - Advise to stop tamoxifen at least 2 weeks before any surgery due to blood clot risk Papillary thyroid cancer Assessment: Patient was diagnosed with papillary thyroid cancer on 06-27-2018 and underwent total thyroidectomy followed by radioiodine therapy. Post-treatment ultrasound on 03-26-2023 showed no gross tumor or thyroid tissue. Last year's ultrasound also showed no tissue mass or lymph nodes in the thyroid bed. Patient requires ongoing endocrinology follow-up for thyroid cancer management. Plan: - Referral placed for endocrinology follow-up - Instruct patient to call endocrinology in 3-4 weeks to schedule an appointment - Perform special blood test to monitor for thyroid cancer recurrence Osteoporosis Assessment: Patient has a history of osteoporosis and is currently on calcium and vitamin D supplementation. She receives Reclast (zoledronic acid) for management, with the last dose given in March 2024. Plan: - Continue calcium and vitamin D supplementation - Continue Reclast as prescribed (timing of next dose not specified) Anemia Assessment: Patient has mild anemia with a hemoglobin of 11.9 g/dL. White blood cell count is 8.3, and platelets are normal at 247. All enzymes are within normal limits except for low alkaline phosphatase. Plan: - Monitor hemoglobin levels (no specific follow-up mentioned) ORDERS: Order # Description [id number] Thyroid Stimulating Hormone + Assay Triiodothyronine (T3) [id number] Assay Triiodothyronine (T3) [id number] MD Follow Up 6 Month [id number] RETURN TO CLINIC: BILLING AND COMPLIANCE: I reviewed external records from providers outside my specialty as summarized above. I spent a total of 50 minutes on this patient?s care on the day of their visit excluding time spent related to any billed procedures. This time includes time spent with the patient as well as time spent documenting in the medical record, reviewing patients records and tests, obtaining history, placing orders, communicating with other healthcare professionals, counseling the patient, family or caregiver, and/or care coordination for the diagnoses above. Electronically Signed by: {Object.Sanct_ID*PnP.NameFL@M}, {Object.Sanct_ID*PnP.Suffix@U} D: {Object.Sanct_Date} T: {Object.Sanct_Time} CC: PCP: Shoaib Soliz Referring: Shoaib Soliz This document was completed utilizing speech recognition software. Grammatical errors, random word insertions, pronoun errors, and incomplete sentences are an occasional consequence of this system due to software limitations, ambient noise, and hardware issues. Any formal questions or concerns about the content, text or information contained within the body of this dictation should be directly addressed to the provider for clarification.
== END 2024-07-31 23:59 | disposition home or self-care (01) ==
LOC: SCTC 14:46
PROVIDERS: PCP Family Medicine; Referring Provider Family Medicine; Visit Provider Internal Medicine Hematology & Oncology
DX: Z51.11 Encounter for antineoplastic chemotherapy (principal); C50.111 Malignant neoplasm of central portion of right female breast; Z17.0 Estrogen receptor positive status [ER+]; Z17.21 Progesterone receptor positive status; Z17.32 Human epidermal growth factor receptor 2 negative status; Z79.810 Long term (current) use of selective estrogen receptor modulators (SERMs); M81.0 Age-related osteoporosis without current pathological fracture; Z90.11 Acquired absence of right breast and nipple; E89.0 Postprocedural hypothyroidism; Z92.3 Personal history of irradiation; Z85.850 Personal history of malignant neoplasm of thyroid; D64.9 Anemia, unspecified
CPT/HCPCS: 96402; 99213; J1950; G0463

== ENCOUNTER 2024-08-17 08:21 | Outpatient (AMB) | payer MEDICAID, SELFPAY ==
[2024-08-17 08:46] VITALS: BP 114/80; PULSE 84; RESP 18; TEMP 36.6; O2SAT 98; BMI 25.6
--- NOTE | 2024-08-17 08:46 | PD.ORTHCLVIS ---
Vital signs 08/17/24 08:46 Height 1.6 m Height Method Stated Weight 65.572 kg Weight Measurement Method Standing Scale BMI 25.6 BP 114/80 Blood Pressure Source Automatic Cuff Blood Pressure Location Left Upper Arm Position Sitting Respiration 18 Pulse 84 Pulse Source Monitor Temp 97.8 F Temp Source Temporal Artery Scan Pulse Oximetry (%) 98 Oxygen Delivery Method Room Air Med/Allergies Allergies & Medications Allergies No Known Allergies Allergy (Verified 08/17/24 08:47) Medication Reconciliation ibuprofen 600 mg tablet 600 mg PO Q6H PRN pain #30 tabs 11/28/21 [Rx Confirmed 08/17/24] meloxicam 7.5 mg tablet 7.5 mg PO QDAY #45 tabs 07/13/24 [Rx Confirmed 08/17/24] Exam Exam Patient is in no acute distress and is cooperative with the examination today. Breathing is nonlabored. In no respiratory distress. Patient has no paraspinal tenderness. Spinal deformity cannot be appreciated. The gait of the patient is nonantalgic Bilateral extremities were evaluated and demonstrates sensation intact to light touch. Palpable pedal pulses are present. No significant edema is present. Bilateral knees were examined and the patient has full strength and range of motion.. The left hip was examined. Patient was able to flex to 90 degrees, adduct to 30 degrees, abduct to 40 degrees, internally rotate to 20 degrees, and externally rotate to 20 degrees. Patient has a negative logroll. Stinchfield is negative. The patient is nontender diffusely to touch. The right hip was examined. Patient was able to flex to 90 degrees, adduct to 30 degrees, abduct to 40 degrees, internally rotate to 10 degrees, and externally rotate to 20 degrees. Patient has a positive logroll and Stinchfield X-rays demonstrate a right hip with an aspherical femoral head. 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 She has evidence of a healed inferior pubic ramus fracture. I have reviewed her CT. It almost looks like she has an acetabular fracture. There is clear missing bone medially. We will get an MRI given her cancer history Assessment and Plan Problem List (1) Unilateral primary osteoarthritis, right hip: Status: Acute Plan: Patient is a pleasant 49-year-old female with right hip pain And likely avascular porosis and prior radiation. I discussed with her that she has very little bone left for a total hip replacement. In fact, There is Significant bone loss medially likely consistent with pelvic discontinuity which would make a total hip replacement very difficult. I wonder if this is possibly cancer. Will get an MRI. We discussed with her that I would use a walker and be toe-touch weightbearing to protect her weightbearing at this time. Office Procedures GNS Level of Care Nursing/Assessment Patient Status: Established Patient Nursing Assessment/Reassesment: Medication Reconciliation, Update PMH in EMR and Vital Signs Coordination of Care: Complex Care and Chronic Disease 1-5, Education Complex Pt/Fam, Consent,records obtained, informed consent, Results/Orders obtained and Staff clarify orders Special Needs: Language special needs Established Patient Charge Established Patient Point Assignment: 95 Established Patient Point Charge: EP Level 3 (80-115) MA Intake Visit Data Collection New Patient or Established: Established Patient (seen at [facility] within 3 years) Reason for Visit:: RIGHT HIP PAIN Seen by Clinical Staff ONLY (RN/MA): No Catering Attendant Required: Yes PCP or OBGYN visit in last 3 months: Yes Hx Now: No Do You Feel Safe at Home: Yes Authorities Contacted: N/A Questionairres Past Medical History Past Medical History Have you ever been diagnosed with any of the following: Neurological Problems Seizures: No Cardiology Problems Congestive Heart Failure: No Respiratory Problems Chronic Obstructive Pulmonary Disease (COPD): No Smoking: No Smoking Cessation Counseling: No Smoking Exposure: No Tobacco Use: No Genital/Urinary Problems Renal Disease: No Reproductive Problems Breast Cancer: Yes (2014) Previous Pregnancies: Yes () Musculoskeletal Problems Arthritis: Yes Endocrine Problems Diabetes Mellitus Type 1: No Diabetes Mellitus Type 2: No Blood Problems Anemia: No Clotting Problems: No Psychologic Problems Depression: Yes Anxiety: Yes Other Problems Hospitalization: No Falls: No Blood Transfusions: No Blood Transfusion Reaction: No Anesthesia Reactions: No Chemotherapy: Yes (2014) Radiation Therapy: Yes (2015) Measles: Yes Cancer: Yes (Thyroid) Surgical History Hysterectomy: Yes Subjective Visit Visit for: follow up visit and hip Immunization / Flu Flu Vaccine in the Last 12 Months: No Flu Vaccine Exclusion Criteria: No Exclusion Criteria History of Present Illness Chief complaint: Right hip pain Patient is a 49-year-old Female with right hip pain. The right hip pain has been ongoing for 4 years. She reports that this all started after she had a fall. She had a inferior pubic ramus fracture 4 years ago. She is still walking. Personal History Red flag PMH: none Pain Pain level (0-10): 6 Pain duration: ALL DAY Pain location: outside (lateral) Pain quality: dull and aching Pain timing: increases with activity and stairs Associated signs & symptoms: none Ambulatory data Ambulatory device: none Walking distance (minutes): 60 Treatments Number of previous injections: 0 Improvement with previous injections: No Number of Physical Therapy sessions: 0 Improvement with PT: No Improvement with NSAIDS: no Review of Systems Review of Systems: All systems negative unless otherwise noted in HPI.
== END 2024-08-17 08:59 | disposition home or self-care (01) ==
LOC: HODSRG 08:21
PROVIDERS: PCP Family Medicine; Referring Provider Family Medicine; Supervising Provider Orthopaedic Surgery Adult Reconstructive Orthopaedic Surgery; Visit Provider Orthopaedic Surgery Adult Reconstructive Orthopaedic Surgery
DX: M16.11 Unilateral primary osteoarthritis, right hip (principal); M25.551 Pain in right hip
CPT/HCPCS: 99213; G0463

== ENCOUNTER 2024-08-18 14:27 | Outpatient (RCR) | payer MEDICAID, SELFPAY | END 2024-08-30 23:59 | disposition home or self-care (01) | LOC: SCTC 14:27 | PROVIDERS: PCP Family Medicine; Referring Provider Family Medicine; Visit Provider Radiology Therapeutic Radiology | DX: Z51.11 Encounter for antineoplastic chemotherapy (principal); C50.111 Malignant neoplasm of central portion of right female breast; Z90.11 Acquired absence of right breast and nipple; Z17.0 Estrogen receptor positive status [ER+]; Z17.21 Progesterone receptor positive status; Z17.32 Human epidermal growth factor receptor 2 negative status; E89.0 Postprocedural hypothyroidism; Z85.850 Personal history of malignant neoplasm of thyroid; Z92.3 Personal history of irradiation | CPT/HCPCS: 36415; 96402; 99213; J1950; G0463 ==

== ENCOUNTER 2024-09-01 14:47 | Outpatient (RCR) | payer MEDICAID, SELFPAY | END 2024-09-30 23:59 | disposition home or self-care (01) | LOC: SCTC 14:47 | PROVIDERS: PCP Family Medicine; Referring Provider Family Medicine; Visit Provider Internal Medicine Hematology & Oncology | DX: Z51.11 Encounter for antineoplastic chemotherapy (principal); C50.211 Malignant neoplasm of upper-inner quadrant of right female breast; Z17.0 Estrogen receptor positive status [ER+]; Z17.21 Progesterone receptor positive status; Z17.32 Human epidermal growth factor receptor 2 negative status; Z90.11 Acquired absence of right breast and nipple; E89.0 Postprocedural hypothyroidism; Z92.3 Personal history of irradiation; Z85.850 Personal history of malignant neoplasm of thyroid | CPT/HCPCS: 96402; J1950 ==

== ENCOUNTER → 2024-09-22 | Outpatient (CLI) | payer MEDICAID, SELFPAY ==
--- NOTE | 2024-09-22 15:44 | XR_ITS ---
Examination: Thyroid sonography complete TECHNIQUE: Grayscale sonographic images thyroid lobes Date and time: September 22, 2024 1551 hours Comparison February 09, 2024 INDICATIONS: Thyroid cancer diagnosis and thyroidectomy 2019, restaging FINDINGS: No soft tissue mass in the thyroid bed, no pathologic lymphadenopathy IMPRESSION: Negative study
== END | disposition home or self-care (01) ==
PROVIDERS: PCP Family Medicine; Referring Provider Radiology Therapeutic Radiology; Visit Provider Radiology Therapeutic Radiology
DX: C73 Malignant neoplasm of thyroid gland (principal); C50.211 Malignant neoplasm of upper-inner quadrant of right female breast; C50.011 Malignant neoplasm of nipple and areola, right female breast; C50.111 Malignant neoplasm of central portion of right female breast
CPT/HCPCS: 76536

== ENCOUNTER 2024-10-06 14:51 | Outpatient (RCR) | payer MEDICAID, SELFPAY | END 2024-10-31 23:59 | disposition home or self-care (01) | LOC: SCTC 14:51 | PROVIDERS: PCP Family Medicine; Referring Provider Family Medicine; Visit Provider Internal Medicine Hematology & Oncology | DX: Z51.11 Encounter for antineoplastic chemotherapy (principal); C50.211 Malignant neoplasm of upper-inner quadrant of right female breast; Z17.0 Estrogen receptor positive status [ER+]; Z17.21 Progesterone receptor positive status; Z17.32 Human epidermal growth factor receptor 2 negative status; Z90.11 Acquired absence of right breast and nipple; E89.0 Postprocedural hypothyroidism; Z85.850 Personal history of malignant neoplasm of thyroid; Z92.3 Personal history of irradiation | CPT/HCPCS: 96402; J1950 ==

== ENCOUNTER 2024-11-18 14:16 | Outpatient (RCR) | payer MEDICAID, SELFPAY | END 2024-11-30 23:59 | disposition home or self-care (01) | LOC: SCTC 14:16 | PROVIDERS: PCP Family Medicine; Referring Provider Family Medicine; Visit Provider Internal Medicine Hematology & Oncology | DX: Z51.11 Encounter for antineoplastic chemotherapy (principal); C50.211 Malignant neoplasm of upper-inner quadrant of right female breast; C73 Malignant neoplasm of thyroid gland; Z17.0 Estrogen receptor positive status [ER+]; Z17.21 Progesterone receptor positive status; Z17.32 Human epidermal growth factor receptor 2 negative status; Z90.11 Acquired absence of right breast and nipple | CPT/HCPCS: 96402; 99212; J1950; G0463 ==

== ENCOUNTER 2024-12-29 07:53 | Outpatient (RCR) | payer MEDICAID, SELFPAY | END 2024-12-31 23:59 | disposition home or self-care (01) | LOC: SCTC 07:53 | PROVIDERS: PCP Family Medicine; Referring Provider Family Medicine; Visit Provider Internal Medicine Hematology & Oncology | DX: Z51.11 Encounter for antineoplastic chemotherapy (principal); C50.211 Malignant neoplasm of upper-inner quadrant of right female breast; C73 Malignant neoplasm of thyroid gland; Z17.0 Estrogen receptor positive status [ER+]; Z17.32 Human epidermal growth factor receptor 2 negative status; Z90.11 Acquired absence of right breast and nipple; Z92.3 Personal history of irradiation; E89.0 Postprocedural hypothyroidism; Z79.810 Long term (current) use of selective estrogen receptor modulators (SERMs) | CPT/HCPCS: 96402; J1950 ==

== ENCOUNTER 2025-01-20 14:57 | Outpatient (RCR) | payer MEDICAID, SELFPAY ==
--- NOTE | 2025-01-20 15:40 | CTCFLWUP_ITS ---
Patient: EMELIA HAYDEN : 1975 Page 8 of 10 FOLLOW UP NOTE DATE OF SERVICE: 01/20/2025 NAME: EMELIA HAYDEN ACCOUNT: [id number] : 1975 AGE: 49 INTERVAL HISTORY: Follow-up for breast cancer and thyroid cancer, discussion about stopping tamoxifen after 10 years of use. Planning for hip surgery .. 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 She presents for follow-up of her oncological conditions. The patient has been on tamoxifen for nearly 10 years following her breast cancer diagnosis. She is currently taking Lupron (leuprolide) 3.75 mg monthly and receives Reclast, with the last dose given in March 2024. She also takes calcium and vitamin D supplements for osteoporosis. At her last visit, she reported knee pain after an injury, but this is not mentioned as an ongoing concern in the current visit. The patient's overall health status appears stable. Her most recent mammogram on 03-27-2024 showed benign findings, with a one-year follow-up recommended. A thyroid ultrasound in March 2023 showed no gross tumor or thyroid tissue. The patient's last CT scan of the chest in 2022 was negative. She has completed her course of treatment for thyroid cancer, including total thyroidectomy and radioiodine therapy. The patient is considering hip surgery in the future and has been advised to discontinue tamoxifen for at least two weeks prior to any surgical procedures due to the risk of blood clots. She has also been informed that she can stop taking tamoxifen soon, as she has nearly completed the recommended 10-year course. Medications and Supplements - Calcium - Vitamin D - Lupron (leuprolide for depot) 3.75 mg every month - Reclast - Last given in March 2024 - Tamoxifen - Taking for almost 10 years - More side effects than benefits after 10 years - Should be stopped at least 2 weeks before surgery due to risk of blood clots Review of Systems Musculoskeletal: Positive for knee pain. Objective: Laboratory, Imaging, and Diagnostic Test Results - Date: Not specified - CBC: Hemoglobin 11.9 g/dL (low), WBC 8.3, Platelets 247 (normal) - Alkaline phosphatase: Low (specific value not provided) - Mammogram (03/27/2024): Benign findings - Thyroid ultrasound (03/26/2023): No gross tumor or thyroid tissue - Pelvic ultrasound (date not specified): Negative for adnexal masses - CT chest (2022): Negative - Thyroid ultrasound (2023): No tissue mass or lymph nodes in thyroid bed ONCOLOGY HISTORY:?[facility] Oncology Hx? DIAGNOSIS: Stage IIIb (pT4, pN1A, cM0) ER positive, NV positive, HER-2/aysha negative high-grade infiltrating ductal carcinoma of the right breast with focally involving the overlying skin and deep margin (08/02/2014). Status post right modified radical mastectomy. Hysterectomy (10/25/2011). 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 Status post total thyroidectomy followed by radioactive iodine treatment. Premenopausal status REASON FOR TODAY?S VISIT: This is office follow-up visit. Ms. Hayden is here at [facility]. She is clinically doing well. Denies any cough, chest pain, abdominal pain or leg cramps. She complains of pain in the left knee. She recently fell and sustained injury to the left knee. Currently she is being followed by orthopedic physician. The patient denies any fevers or night sweats. Has good appetite and good energy levels. Since last visit she had barium enema which is a negative study. Central portion of breast [ICD9] 174.1*; Malignant neoplasm of upper-inner quadrant of right female breast [ICD10] C50.211; Malignant neoplasm of nipple and areola, right female breast [ICD10] C50.011; Malignant neoplasm of central portion of right female breast [ICD10] C50.111; Malignant neoplasm of thyroid gland [ICD10] C73 DATE OF DIAGNOSIS: 03/10/2014 STAGE/TNM: IIIB T4a N1a M0 TREATMENT HISTORY: Care?Plan Start?Date Cycle Day Intent DOXOrubicin?60,?Cyclophos?600?+?G 05/03/2014 21 Curative?(primary) DOCEtaxel?75?mg/m*2?-?Breast 09/01/2014 21 Curative?(adjuvant) Lupron?7.5?mg 08/17/2020 1 30 Curative?(adjuvant) Lupron?Depot?3.75?monthly 11/14/2022 1 28 Curative?(adjuvant) Reclast 03/17/2023 1 365 Palliative HISTORY OF PRESENT ILLNESS: Madhuri Hidalgo is a 49-year-old Dominican-speaking premenopausal female with following oncology history. 12/14/2013: Right breast ultrasound showed a suspicious nodule measuring 2.69 x 2.15 x 2.08 cm in size. 03/10/2014: Ultrasound-guided biopsy of the right breast nodule showed grade 2?3 invasive ductal carcinoma, ER positive, NV positive and HER-2/aysha negative. 05/03/2014?07/05/2014: Patient received 4 cycles of AC chemotherapy. 08/02/2014: Patient had a right modified radical mastectomy. Surgical pathology specimen showed a pT4, pN1A disease. 09/01/2014?11/03/2014: Patient received 4 cycles of Taxotere chemotherapy. 11/21/2014?01/13/2015: Patient received a total of 6300 cGy of radiation to the right chest and supraclavicular area. Following the radiation therapy patient was started on adjuvant tamoxifen. 03/13/2018: PET CT scan was done which showed a hypermetabolic left thyroid nodule measuring 14 mm in size with an SUV of 8.7. Metastatic disease was not found. 04/22/2018: Thyroid ultrasound showed a 7 x 11 mm nodule in the upper portion of the left thyroid lobe and a 20 x 13 mm second nodule in the lower portion of the left thyroid lobe. 05/23/2018: Nuclear medicine radioisotope thyroid uptake and scan showed elevated thyroid uptake values. 06/25/2018: Patient had ultrasound-guided fine-needle aspiration of the left thyroid nodule. Pathology showed papillary thyroid carcinoma. 07/09/2018: Thyroglobulin less than 2.0 , antithyroglobulin antibodies 1.8 (0.0?0.9). TSH 1.78. 08/18/2018: Total thyroidectomy. 10/22/2018: Patient had radioactive iodine treatment. 01/13/2019: CT scan of the neck with contrast?minimal residual left thyroid tissue, axial image 46, 7 x 6 mm Minimal residual right thyroid tissue, axial image 45, 4 x 3 mm 07/09/2018: Antithyroglobulin antibodies 1.8, thyroglobulin less than 2.0 10/01/2018: Antithyroglobulin antibodies 4.0, thyroglobulin 2.1 12/03/2018: Antithyroglobulin antibodies 5.4, thyroglobulin 5.1. 03/05/2019: Thyroglobulin antibody 4.7. 07/19/2019: Thyroglobulin antibody 4.3. 08/25/2019: Nuclear medicine thyroid scan? 09/28/2019: Thyroid sonography complete? 11/11/2019: CT scan of the neck with IV contrast?no interval metastatic disease. 11/29/2019: Left breast screening mammogram?BI-RADS Category 2: Benign findings. 11/29/2019: TSH 12.4, thyroglobulin antibody 4.6. 12/10/2019: PET CT scan? 07/20/2020 antithyroglobulin antibodies 4.0, thyroglobulin 3.4, TSH 0.457 07/28/2020: Total estrogens 1224 pg/mL, FSH 13.6, LH 17.9. 09/19/2020: CT scan of the neck, chest, abdomen and pelvis? 09/27/2020: Patient received 7.5 mg of Lupron. 10/17/2020: Patient had transvaginal as well as pelvic ultrasound. 01/10/2021: Thyroglobulin antibody 2.8, antithyroglobulin antibodies 3.5, thyroglobulin 2.6, TSH 2.6, CEA 0.9 03/05/2022: Thyroglobulin antibody 3.1, antithyroglobulin antibodies 2.5, thyroglobulin 2.0, TSH 0.953, free T4 1.69 07/04/2022: Thyroglobulin antibody 2.8, TSH 0.273, T41.75. 08/07/2022: Thyroglobulin antibody 2.6, TSH3.530, T4 1.38 08/27/2022: CT chest w con 08/27/2023: Barium enema done OTHER MEDICAL HISTORY/CONDITIONS: FAMILY HISTORY: ?Clone Family Hx? 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 Calcium 600 + D(3) - 600 mg calcium- 200 unit 1 Capsule Twice a Day 2. Synthroid - 88 mcg 1 tab Daily 3. Synthroid - 100 mcg 1 tab Daily 4. Synthroid - 112 mcg 1 tab Daily 5. tamoxifen - 20 mg 1 tab Daily?Palabra Meds? Medications Last Reconciled by Jackie Gonzalez MD on 11/18/2024 ALLERGIES: No Known Drug Allergies REVIEW OF SYSTEMS: A complete 14-point review of systems was performed and is negative except as noted in interval history. PHYSICAL EXAMINATION:?[facility]oneBlock PE? VITAL SIGNS: Vitals reviewed Alert oriented x 4 no adenopathy palpable in the neck, axillary and inguinal regions. Chest clear to auscultation. No wheezes or rales audible. Abdomen is soft. No hepatosplenomegaly palpable. Extremities no clubbing or cyanosis noted. LABORATORY DATA: I have personally reviewed and interpreted each of the patient?s relevant lab tests, abnormal findings are below: Date 10/02/16 03/20/24 ??WHITE?BLOOD?COUNT?(Thou/mm3) 8.5 8.3 ??RED?BLOOD?COUNT?(Miln/mm3) 3.88?L 3.99?L ??HEMOGLOBIN?(gm/dl) 11.8?L 11.9?L ??HEMATOCRIT?(%) 34.6?L 35.4?L ??PLATELET?COUNT?(Thou/mm3) 245 247 ??NEUTROPHILS?%,?AUTO?(%) 71 71 ??LYMPH?%,?AUTO?(%) 23 22 ??NEUTROPHILS,?AUTO?(Thou/mm3) 6.0 5.8 ??GLUCOSE,RANDOM?(mg/dL) 84 94 ??BLOOD?UREA?NITROGEN?(mg/dL) 9 12 ??CREATININE?(mg/dL) 0.70 0.60 ??SODIUM?(mmol/L) 140 140 ??POTASSIUM?(mmol/L) 3.5 3.7 ??CHLORIDE?(mmol/L) 106 106 ??CrCl?(CandG)?(ml/min) 104.63 115.67 ??AST/SGOT?(Unit/L) 19 18 ??ALT/SGPT?(Unit/L) 22 11 ??ALKALINE?PHOSPHATASE?(Unit/L) 38?L 39?L ??BILIRUBIN,?TOTAL?(mg/dL) 0.4 0.5 ??PROTEIN?TOTAL?(gm/dl) 7.3 7.0 ??ALBUMIN,?SERUM?(gm/dl) 3.8 4.5 ??GLOBULIN?(gm/dl) 3.5 2.5 ??ALBUMIN/GLOBULIN?RATIO 1.1?L 1.8 ??CALCIUM,?SERUM?(mg/dL) 8.1?L 9.0 ??CALCIUM?SERUM?(CORRECTED)?(mg/dL) 8.3?L 9.0 ASSESSMENT/PLAN:?Felicita Will Assessment/Plan? Assessment and Plan: Kei diego is a patient with a history of stage 3B receptor-positive, HER2-negative high-grade invasive ductal carcinoma of the right breast (2014) and papillary thyroid cancer (2018), presenting for follow-up. Stage 3B receptor-positive, HER2-negative high-grade invasive ductal carcinoma, right breast Assessment: Patient was diagnosed with stage 3B receptor-positive, HER2-negative high-grade invasive ductal carcinoma of the right breast in 2014. She underwent neoadjuvant chemotherapy, modified mastectomy, and post-op radiation to the right chest wall and regional nodes. The patient has been on tamoxifen for nearly 10 years, which is considered the maximum beneficial duration. Recent mammogram on 03-27-2024 showed benign findings. The patient has completed the recommended course of tamoxifen therapy, and continuation beyond 10 years is associated with more side effects than benefits. Plan: Stopped tamoxifen Cont to monitor Papillary thyroid cancer Assessment: Patient was diagnosed with papillary thyroid cancer on 06-27-2018 and underwent total thyroidectomy followed by radioiodine therapy. Post-treatment ultrasound on 03-26-2023 showed no gross tumor or thyroid tissue. Last year's ultrasound also showed no tissue mass or lymph nodes in the thyroid bed. Patient requires ongoing endocrinology follow-up for thyroid cancer management. Plan: - Referral placed for endocrinology follow-up - Instruct patient to call endocrinology in 3-4 weeks to schedule an appointment - Perform special blood test to monitor for thyroid cancer recurrence Osteoporosis Assessment: Patient has a history of osteoporosis and is currently on calcium and vitamin D supplementation. She receives Reclast (zoledronic acid) for management, with the last dose given in March 2024. Plan: - Continue calcium and vitamin D supplementation - Continue Reclast as prescribed (timing of next dose not specified) Anemia Assessment: Patient has mild anemia with a hemoglobin of 11.9 g/dL. White blood cell count is 8.3, and platelets are normal at 247. All enzymes are within normal limits except for low alkaline phosphatase. Plan: - Monitor hemoglobin levels (no specific follow-up mentioned) ORDERS: Order # Description [id number] MD Follow Up 1 Year [id number] 3D Mammogram Screening + Left [id number] Comprehensive Metabolic Panel - 12 + CBC with Auto Diff [id number] MD Follow Up 6 Month [id number] CBC + Comprehensive Metabolic Panel [id number] Lab Appointment [id number] CBC + Comprehensive Metabolic Panel [id number] Lab Appointment [id number] CBC + Comprehensive Metabolic Panel [id number] Lab Appointment [id number] CBC + Comprehensive Metabolic Panel [id number] Lab Appointment RETURN TO CLINIC: I reviewed the diagnosis, prognosis, and recommended treatment/procedure options with the patient (and/or their legal energy conservation representative), including the potential benefits, risks, side effects and alternative therapies. We also discussed the option of no treatment and the possibility of clinical trial participation, if applicable. All questions were addressed, and they demonstrated understanding. They provided informed consent to proceed with the proposed plan of care. BILLING AND COMPLIANCE: I reviewed external records from providers outside my specialty as summarized above. I spent a total of 50 minutes on this patient?s care on the day of their visit excluding time spent related to any billed procedures. This time includes time spent with the patient as well as time spent documenting in the medical record, reviewing patients records and tests, obtaining history, placing orders, communicating with other healthcare professionals, counseling the patient, family or caregiver, and/or care coordination for the diagnoses above. Electronically Signed by: Antonio Will MD T: 3:38 PM CC: PCP: Joaquin Jasmine Referring: Joaquin Jasmine This document was completed utilizing speech recognition software. Grammatical errors, random word insertions, pronoun errors, and incomplete sentences are an occasional consequence of this system due to software limitations, ambient noise, and hardware issues. Any formal questions or concerns about the content, text or information contained within the body of this dictation should be directly addressed to the provider for clarification.
== END 2025-01-30 23:59 | disposition home or self-care (01) ==
LOC: SCTC 14:57
PROVIDERS: PCP Family Medicine; Referring Provider Family Medicine; Visit Provider Internal Medicine Hematology & Oncology
DX: C50.111 Malignant neoplasm of central portion of right female breast (principal); Z17.0 Estrogen receptor positive status [ER+]; Z17.21 Progesterone receptor positive status; Z17.32 Human epidermal growth factor receptor 2 negative status; Z90.11 Acquired absence of right breast and nipple; Z79.810 Long term (current) use of selective estrogen receptor modulators (SERMs); E89.0 Postprocedural hypothyroidism; Z85.850 Personal history of malignant neoplasm of thyroid; M81.0 Age-related osteoporosis without current pathological fracture; D64.9 Anemia, unspecified
CPT/HCPCS: 99212; G0463

== ENCOUNTER → 2025-02-18 | Outpatient (CLI) | payer MEDICAID, SELFPAY ==
--- NOTE | 2025-02-18 15:30 | XR_ITS ---
Examination: MRI right hip without intravenous contrast. Date and time of exam: February 18, 2025, 1622 hours INDICATIONS: Diagnosis unilateral primary osteoarthritis right hip, right hip pain weakness joint locking and stiffness right leg swelling 5 years after fall Technique: Multiple MRI images of the right hip have been obtained T1 weighted coronal sections, TR 500, TE 12 Proton density coronal fat saturated images, TR 3000, TE 71 T2-weighted coronal images, 5850, TE 104 T1-weighted axial images, TR 521, TE 12 T2-weighted axial fat suppressed images, TR 5730, TE 103. Findings: Moderate to advanced right hip osteoarthritis Avascular necrosis involving the right femoral head 22 x 20 mm Mild to moderate narrowing left hip joint Right hip anterior superior labral tears Bones of the pelvis intact Intact urinary bladder Small [id number] high resolution images of the right hip do not demonstrate definite labral tear IMPRESSION: Moderate to advanced right hip osteoarthritis Avascular necrosis right femoral head Right hip anterior superior labral hip tears
== END | disposition home or self-care (01) ==
PROVIDERS: PCP Family Medicine; Referring Provider Family Medicine; Visit Provider Family Medicine
DX: M16.11 Unilateral primary osteoarthritis, right hip (principal); M87.9 Osteonecrosis, unspecified; S43.431A Superior glenoid labrum lesion of right shoulder, initial encounter; W19.XXXA Unspecified fall, initial encounter
CPT/HCPCS: 73721

== ENCOUNTER 2025-02-22 13:16 | Outpatient (RCR) | payer MEDICAID, SELFPAY ==
--- NOTE | 2025-02-23 08:06 | CTCFLWUP_ITS ---
Lenny Pate [facility] [address], [place] [address] FOLLOW-UP NOTE Date: 02/22/2025 MR#: [id number] Name: EMELIA HAYDEN : 1975 Dx: C50.211 Malignant neoplasm of upper-inner quadrant of right female breast 49-year-old lady with history of stage IIIb ([id number]) receptor positive HER2 negative high-grade invasive ductal carcinoma right breast status post neoadjuvant chemo right modified mastectomy 2014 postop XRT to right chest wall regional nodes. Being followed by Dr. Will, recently stopped tamoxifen after 10 years with no sign of recurrence. Papillary carcinoma diagnosed 06/27/2018 status post total thyroidectomy TibN1 (3 positive nodes ) followed by radioiodine 97 mCi 10/20/2018. Postop radioiodine showed no mets. Most recent ultrasound 09/22/2024 was unremarkable. Patient currently on 112 mcg of Synthroid. T4 10.7 (4.5-12) TSH 0.18 ( 0.45 -4.5) Thyroglobulin antibody 2.8 down from 3.5 of 11/19/2024 Thyroglobulin pending. Was <0.2 11/03/2024, and 04/07/2024. Currently on 112 mcg of Synthroid tolerating well. A#1. History of stage IIIb receptor positive HER2 negative high-grade invasive ductal carcinoma right breast CA status post neoadjuvant chemo mastectomy postop XRT 2014 with no sign recurrence thus far. A#2. Dr. Will advised stopping hormone manipulating drugs since it has been over 10 years. A#3. Patient with stage I papillary thyroid carcinoma (based on her age) is no sign of recurrence clinically radiographically and biochemically though most recent thyroglobulin is pending. A#4. Patient is euthyroid in terms of T4, with low TSH of 0.18 which may be desirable with patient at some risk of recurrence. Repeat labs pending. A#5. Reportedly has endocrinology eval coming up. Patient was asked to return here in 3 months but I will see her less frequently if retail salesman also following patient. Electronically signed by: Rainer Hawkins M.D. 02/23/2025 8:04 AM
== END 2025-03-02 23:59 | disposition home or self-care (01) ==
LOC: SCTC 13:16
PROVIDERS: PCP Family Medicine; Referring Provider Family Medicine; Visit Provider Radiology Therapeutic Radiology
DX: Z08 Encounter for follow-up examination after completed treatment for malignant neoplasm (principal); Z85.3 Personal history of malignant neoplasm of breast; Z92.21 Personal history of antineoplastic chemotherapy; Z90.11 Acquired absence of right breast and nipple; Z92.3 Personal history of irradiation; Z85.850 Personal history of malignant neoplasm of thyroid
CPT/HCPCS: 99212; 99213; G0463